=== PATIENT | female | born 1935 | race Caucasian/White ===

== ENCOUNTER 2018-06-20 12:04 | Emergency (ER) | payer MEDICARE, BC ==
[~2018-06-20] VITALS: Ht 154.9 cm; Wt 59.0 kg
[~2018-06-20 12:04] MED LIST: BACITRACIN15 GM TOPIC; TRAMADOL HCL50 MG ORAL
[2018-06-20 12:20] VITALS: BP 158/73
--- NOTE | 2018-06-20 12:37 | Emergency Room Report ---
History of Present Illness General Chief Complaint: Multiple Trauma/Fall Source: Patient Present Illness HPI 83-year-old female patient presents the ER complaining of right-sided rib pain status post fall last night. Patient reports that she was up at 4 AM in the morning to go and take her medication and when she walked back to get into bed she slipped out of the bed and pain to the right side of her ribs against the table. Reports she fell onto her knees, denies knee pain. Reports able to ambulate without difficulty. Reports that she did not hit her head or lose consciousness. Denies syncope or feeling faint prior to fall. Denies fever, chest pain, shortness of breath. Reports pain on the right side with deep inspiration however denies shortness of breath or difficulty breathing. Reports that she has a history of right 10th right rib fracture several years ago. Denies other aggravating or relieving factors. Allergies: Coded Allergies: TETANUS TOXOID, ADSORBED (Verified Allergy, Unknown, 06/18/15) Patient History Past Medical History: see triage record Reviewed Nursing Documentation: PMH: Agreed; PSxH: Agreed Nursing Documentation-PMH Past Medical History: No History, Except For Hx Cardiac Problems: No Hx Hypertension: Yes Hx Pacemaker: No Hx Asthma: No Hx COPD: No Hx Diabetes: Yes - Pre Diabetes Hx Cancer: No Hx Gastrointestinal Problems: No Hx Dialysis: No Hx Neurological Problems: No Hx Cerebrovascular Accident: No Hx Seizures: No Review of Systems All Other Systems: negative except mentioned in HPI Physical Exam Vital Signs Date Time Temp Pulse Resp B/P (MAP) Pulse Ox O2 Delivery O2 Flow Rate FiO2 06/20/18 12:11 98.1 82 16 158/73 95 Room Air Sp02 EP Interpretation: reviewed, normal General Appearance: well appearing, no apparent distress, alert, GCS 15, non- toxic Head: normocephalic, atraumatic Eyes: bilateral eye normal inspection, bilateral eye PERRL ENT: hearing grossly normal, normal pharynx, no angioedema, normal voice, uvula midline, moist mucus membranes Neck: full range of motion Respiratory: lungs clear, normal breath sounds, no rhonchi, no respiratory distress, no accessory muscle use, no wheezing, speaking full sentences, other - right anterior lower ribs: mild TTP, small palpable deformity noted over anteriolateral 10th rib, no overlying erythema or ecchymosis; no absent breath sounds Cardiovascular #1: regular rate, rhythm, no edema Gastrointestinal: non tender, soft, no mass, non-distended, no guarding, no rebound Musculoskeletal: back normal, digits/nails normal, gait/station normal, normal range of motion, non-tender, other - no laxity with varus or valgus stress, no deformity, no erythema, no abrasions Neurologic: alert, oriented x3, responsive, motor strength/tone normal, sensory intact Psychiatric: mood/affect normal Skin: no rash Lymphatic: no adenopathy Medical Decision Making PA Attestation Dr. Johnson is my supervising Physician whom patient management has been discussed with. Diagnostic Impression: Primary Impression: Rib contusion ER Course Pt. presents to the ED c/o right rib pain status post fall. Multiple differentials considered including but not limited to contusion, fracture, pneumothorax. Denies syncope or dizziness prior to fall, denies hitting or loss consciousness , does not require CT head or workup to evaluate for syncopal etiology. Vital signs: are WNL, pt. is afebrile ER COURSE: Patient declined pain medication in the ER. No tenderness palpation of bilateral knees, no laxity with varus valgus stress, patient states she is able to walk without difficulty, does not require x-ray of her knees at this time. An X-ray of the right ribs was ordered, results show no acute fracture per the official [employer] reading. An X-ray of the chest was ordered, results show no acute disease per the official [employer] reading. Discuss results with the patient. Provided patient with copy of results. Instructed patient to followup with PCP and discuss results of report with patient, discuss need for further treatment and referral. Informed patient likely rib contusion. Small deformity likely due to history of 10th rib fracture. Patient instructed to avoid strenuous exercise that may exacerbate symptoms. Followup with primary care provider for medical clearance to return to activities. Discuss referral to ortho/pain management/PT as needed. Discuss further imaging with MRI/CT as needed. Declined need for pain medication Rx. Advised patient on ice. DISCHARGE: At this time pt is stable for d/c to home. Patient is resting comfortably, in no acute distress, nontoxic appearing, talking without difficulty, smiling and giving high-fives. Patient to take medications as instructed Will provide with patient care instructions and any necessary prescriptions. Care plan and follow-up instructions provided. Patient instructed to follow-up with primary care provider in 3 - 5 days. Patient questions asked and answered. Patient reports understanding and agreement to treatment plan. ER precautions given. Patient instructed to return to ER immediately for any new or worsening of symptoms including but not limited to increasing SOB, persistent fever, chest pain, intractable vomiting. - Please note that this Emergency Department Report was dictated using [employer] technology software, occasionally this can lead to erroneous entry secondary to interpretation by the dictation equipment. Chest X-Ray Diagnostic Results Chest X-Ray Diagnostic Results : Chest X-Ray Ordered: Yes # of Views/Limited/Complete: 1 View Indication: Chest Pain EP Interpretation: Yes PA Xray: Interpretation reviewed, by supervising MD, and agrees with findings. Interpretation: no consolidation, no effusion, no pneumothorax Impression: No acute disease ROSALINO FlowersibDeborah Hernandez PA-C Other X-Ray Diagnostic Results Other X-Ray Diagnostic Results : X-Ray ordered: Right ribs # of Views/Limited Vs Complete: 4 View Indication: Pain EP Interpretation: Yes PA Xray: Interpretation reviewed, by supervising MD, and agrees with findings. Interpretation: no dislocation, no soft tissue swelling, no fractures, nonspecific bowel gas Impression: No acute disease ROSALINO Scribe Crissy Hernandez PA-C Last Vital Signs Date Time Temp Pulse Resp B/P (MAP) Pulse Ox O2 Delivery O2 Flow Rate FiO2 06/20/18 12:11 98.1 82 16 158/73 95 Room Air Status: improved Disposition: HOME, SELF-CARE Condition: Stable Patient Instructions: Rib Contusion Additional Instructions: Followup with primary care provider in 3 -5 days. Apply ice to affected area. Take medications as directed. Take Tylenol as needed for pain. Patient questions asked and answered. ER precautions given, patient instructed to return to ER immediately for any new or worsening of symptoms. Kar Hernandez Jun 20, 2018 12:37
--- NOTE | 2018-06-20 13:41 | Diagnostic Imaging Report ---
EXAM: XR Right Ribs, 2 Views, AP view chest CLINICAL HISTORY: PAIN TECHNIQUE: Frontal and oblique views of the right ribs and AP view chest. COMPARISON: Chest x-ray 08/03/08, right shoulder x-ray 06/18/15 FINDINGS: Lungs: Unremarkable as visualized. No consolidation. Heart: Mild cardiomegaly. Pleural space: Unremarkable. No pneumothorax. Bones/joints: Osteopenic. Old right humeral neck fracture. Degenerative changes of the spine. IMPRESSION: No acute fracture.
[2018-06-20 14:00] VITALS: BP 148/76
== END 2018-06-20 14:00 | disposition home or self-care (01) ==
LOC: EMR 13:29
DX: S20.211A Contusion of right front wall of thorax, initial encounter (principal); W01.190A Fall on same level from slipping, tripping and stumbling with subsequent striking against furniture, initial encounter; Y92.009 Unspecified place in unspecified non-institutional (private) residence as the place of occurrence of the external cause; Z88.7 Allergy status to serum and vaccine; I10 Essential (primary) hypertension; R73.03 Prediabetes
CPT/HCPCS: 99284